=== PATIENT | female | born 1950 | race Caucasian/White ===

== ENCOUNTER 2024-08-08 16:03 | Emergency (ER) | payer OTHER ==
[2024-08-08] MEDS ORDERED: NA CHLORIDE 0.9% 1,000 ML ONE (17:05)
[2024-08-08 17:30] LABS: Specific Gravity < 1.005 (1.005-1.030); Sqamous Epithelial None Seen /HPF (None Seen); Urine Bacteria <20 /HPF (<20); Urine Bilirubin NEGATIVE (Negative); Urine Blood Trace (Negative); Urine Clarity Turbid (Clear); Urine Color Colorless (Yellow); Urine Culture Reflex Order NOT NEEDED; Urine Glucose NEGATIVE (Negative); Urine Ketones TRACE (Negative); Urine Microscopic Reflex YN ORDER UMIC; Urine Nitrite NEGATIVE (Negative); Urine Protein NEGATIVE (Negative); Urine RBC <5 /HPF (None Seen); Urine Urobilinogen Normal (Normal); Urine WBC <5 /HPF (<5); Urine pH 6.5 (5.0-7.0)
[2024-08-08 17:35] LABS: Absolute Eosinophils 0.3 K/uL (0-0.5); Absolute Monocytes 0.8 K/uL (0.1-1.3); Absolute Neutrophil 4.6 K/uL (1.8-8.0); Basophils % 0.7 % (0-1.3); Eosinophils % 4.5 % (0-4.4); Hematocrit 41.1 % (36.0-45.0); Hemoglobin 13.3 g/dL (12.0-15.0); Lymphocytes % 14.7 % (15.3-44.8); MCH 28.4 pg (27.0-35.0); MCHC 32.4 g/dL (32.0-36.0); MCV 87.7 fL (80-100); MPV 9.7 fL (7.6-11.3); Monocytes % 11.4 % (3.3-12.3); Neutrophils % 68.7 % (41.7-73.7); Nucleated Red Blood Cells % 0.1 % (0-0); Platelets 189 thou/uL (152-406); RBC Red Blood Cell Count 4.68 M/uL (3.86-4.86); Red Cell Distribution Width 18.8 % (12.1-15.2)
[2024-08-08 17:52] LABS: Albumin 2.6 g/dL (3.4-5.0); Albumin/Globulin Ratio 0.6 (1.1-1.8); Anion Gap 10.2 mEq/L (5.0-15.0); Bilirubin Total 0.7 mg/dL (0.2-1.0); Globulin 4.3 g/dL (2.3-3.5); Potassium 3.2 mEq/L (3.5-5.1); Protein, Total 6.9 g/dL (6.4-8.2)
--- NOTE | 2024-08-08 18:50 | RAD REPORT ---
EXAMINATION: CT Abdomen Pelvis W Contrast CLINICAL INDICATION: Female, 73 years old. ABD PAIN TECHNIQUE: CT abdomen and pelvis was performed, after the administration of IV contrast, as per [facility] protocol. Axial, sagittal and coronal reconstructions were obtained. One or more of the following dose reduction techniques were used: Automated exposure control, adjustment of the mA and k V according to patient size, and iterative reconstruction. Unless otherwise specified, incidental findings do not require dedicated imaging follow-up. COMPARISON: No prior exam. FINDINGS: LOWER CHEST: Bilateral pleural fibrotic changes/scarring. LIVER: Normal in size and contour. Hypoattenuating posterior right lobe subcapsular 1.2 cm lesion, no t well characterized. Hyperenhancing 11 mm lesion peripheral right lower lobe inferiorly, may represent a hemangioma, not well characterized as well. BILIARY SYSTEM: No suspicious abnormalities. SPLEEN: Normal size. No focal lesion. PANCREAS: No mass, ductal dilation, or ileana-pancreatic fluid. ADRENALS: Normal; no mass. KIDNEYS: Normal size and contour. No hydronephrosis. URINARY BLADDER: Unremarkable. GASTROINTESTINAL TRACT: Moderate-sized hiatal hernia. No evidence of free air, significant intra-abdo isaac free fluid, bowel obstruction or abscess. APPENDIX: Normal appendix. LYMPH NODES: No lymphadenopathy. MUSCULOSKELETAL: No acute or suspicious osseous abnormality. ADDITIONAL FINDINGS: Retroverted uterus. Multiple subserosal masses suggesting fibroids. Hypoattenuat ing rounded 2.9 cm mass centered on the fundal endometrium, may suggest a subendometrial fibroid. Crescentic hypoattenuating 4.6 x 3.3 cm lesion along the left posterior pelvis, may represent a subse cahno degenerating fibroid versus adnexal cystic lesion. These are not well characterized. IMPRESSION: No acute intra-abdominal or intrapelvic process. Small lesions of the liver as above, may represent a cyst and hemangioma, not well characterized, but likely benign. If additional imaging characterization is needed, MRI evaluation would be more helpful. Retroverted uterus with multiple masses suggesting fibroids, including a subendometrial 2.9 cm mass. These can be further evaluated by targeted ultrasound. A crescentic hypoattenuating left posterior pelvic 4.6 cm lesion may represent a degenerating fibroid versus complex pelvic cyst. Moderate hiatal hernia and other incidental findings as above
[2024-08-08] MEDS ORDERED: POTASSIUM CL SA 10 MEQ TAB PO ONE (19:26)
[2024-08-08] MEDS ORDERED: FLEET ENEMA ADULT PR ONE (19:26)
--- NOTE | 2024-08-08 20:43 | EDPHYS ---
Physician Documentation [facility] Name: Jovani Soriano Age: 73 yrs Sex: Female : 1950 Arrival Date: 08/08/2024 Time: 16:03 Bed 16 Private MD: ED Physician Trino Ambriz HPI: 08/08 18:09 This 73 yrs old Female presents to ER via Ambulatory with complaints of Constipation. kb 18:09 Pt is a 73 year old female who presents for constipation that started 2 weeks ago. kb States she hasn't been eating much because everything tastes salty to her and she has been feeling weak. Went to a GI dr 7 days ago and was told to take magnesium citrate and an enema. States she did those things 7 days ago and was able to get some stool out but it was like diarrhea so she believes she has a blockage or impaction. States she put her finger in her rectum, but didn't feel any stool so she believes it is higher up. Historical: - Allergies: 16:40 No Known Allergies; hb - Immunization history:: Adult Immunizations up to date. - Infectious Disease History:: Denies. - Social history:: Smoking status: Patient denies any tobacco usage or history of. ROS: 18:08 Constitutional: As per HPI kb Exam: 18:08 Constitutional: This is a well developed, well nourished patient who is awake, alert, kb and in no acute distress. Head/Face: Normocephalic, atraumatic. ENT: Moist Mucous membranes Cardiovascular: Regular rate Respiratory: Respirations even and unlabored. No increased work of breathing. Talking in full sentences Skin: Warm, dry with normal turgor. Normal color. MS/ Extremity: Pulses equal, no cyanosis. Neurovascular intact. Full, normal range of motion. Neuro: Awake and alert, GCS 15, oriented to person, place, time, and situation. Moves all extremities. Normal gait. 18:08 Abdomen/GI: Inspection: abdomen appears normal, Bowel sounds: normal, Palpation: soft, in all quadrants, mild abdominal tenderness, in the left lower quadrant, Vital Signs: 16:15 BP 155 / 103; Pulse 102; Resp 16; Temp 98.1(O); Pulse Ox 97% on R/A; Weight 68.04 kg; hb Height 5 ft. 5 in. ; Pain 0/10; 16:30 BP 158 / 109; Pulse 95; Resp 18; Pulse Ox 98% on R/A; db 17:40 BP 148 / 83; Pulse 91; Resp 18; Pulse Ox 100% on R/A; db 18:00 BP 154 / 90; Pulse 88; Resp 18; Pulse Ox 100% on R/A; db 19:14 BP 161 / 82; Pulse 86; Resp 20; Pulse Ox 100% on R/A; kj2 21:08 BP 150 / 80; Pulse 82; Resp 20; Temp 98; Pulse Ox 100% on R/A; kj2 16:15 Body Mass Index 24.96 (68.04 kg, 165.1 cm) hb 16:15 Pain Scale: Adult hb MDM: 16:15 Patient medically screened. kb 18:09 Differential diagnosis: constipation, bowel obstruction, fecal impaction. Data kb reviewed: vital signs, nurses notes. 20:42 Historians other than the Patient: Spouse/Significant Other: . Counseling: I had kb a detailed discussion with the patient and/or guardian regarding the historical points, exam findings, and any diagnostic results supporting the discharge/admit diagnosis, lab results, radiology results, the need for outpatient follow up, a family practitioner, a retail sales associate bilingual, to return to the emergency department if symptoms worsen or persist or if there are any questions or concerns that arise at home. 08/08 16:37 Order name: CBC with Diff; Complete Time: 17:46 kb 08/08 16:37 Order name: CMP; Complete Time: 18:00 kb 08/08 16:37 Order name: Lipase; Complete Time: 18:00 kb 08/08 16:37 Order name: Urinalysis w/ reflexes; Complete Time: 17:36 kb 08/08 16:37 Order name: CT Abd/Pelvis - IV Contrast Only; Complete Time: 18:54 kb 08/08 16:37 Order name: IV Saline Lock; Complete Time: 17:49 kb 08/08 16:37 Order name: Labs collected and sent; Complete Time: 17:49 kb Administered Medications: 17:40 Drug: NS 0.9% IV 1000 ml IV at 1 bolus Per protocol; 1000 mL bolus Route: IV; Rate: 1 db bolus; Site: left antecubital; 21:12 Follow up: IV Status: Completed infusion; IV Intake: 1000ml kj2 19:57 Drug: Potassium Chloride PO 40 mEq PO once Route: PO; kj2 21:10 Follow up: Response: No adverse reaction kj2 19:57 Drug: Fleet Enema MO 133 ml MO once; may repeat once Route: MO; kj2 21:09 Follow up: Response: No adverse reaction; Marked relief of symptoms kj2 Disposition: 19:43 I was immediately available on-site in the Emergency Department for consultation in the ms3 care of the patient. Disposition Summary: 08/08/24 20:43 Discharge Ordered Notes: Location: Home kb Condition: Stable kb Diagnosis - Constipation kb Followup: kb - With: Emergency Department - When: As needed - Reason: Worsening of condition Followup: kb - With: Private Physician - When: 2 - 3 days - Reason: Recheck today's complaints, Continuance of care, Re-evaluation by your physician Discharge Instructions: - Discharge Summary Sheet kb - Constipation, Adult, [id number] kb Forms: - Medication Reconciliation Form kb - Antibiotic Education kb - Prescription Opioid Use kb - Patient Portal Instructions kb - Leadership Thank You Letter kb Signatures: Dispatcher [employer] EDMS Lyubov Lucia, PARCEL POST CLERK-C PARCEL POST CLERK-Ckb Luz Smallwood, RN RN Trino Ambriz, DO ms3 Herlinda Martinez RN RN db Em Adam RN RN kj2 Corrections: (The following items were deleted from the chart) 16:37 16:37 CBC+H.LAB.BRZ ordered. EDMS EDMS 16:37 16:37 COMPREHENSIVE METABOLIC PANEL+C.LAB.BRZ ordered. EDMS EDMS 16:37 16:37 LIPASE+C.LAB.BRZ ordered. EDMS EDMS 16:37 16:37 Urinalysis+U.LAB.BRZ ordered. EDMS EDMS 16:37 16:37 Abdomen Pelvis W Con+CT.RAD.BRZ ordered. EDMS EDMS
--- NOTE | 2024-08-08 20:43 | ER ---
Nurse's Notes [facility] Name: Jovani Soriano Age: 73 yrs Sex: Female : 1950 Arrival Date: 08/08/2024 Time: 16:03 Bed 16 Private MD: Diagnosis: Constipation Presentation: 08/08 16:15 Chief complaint: Constipation x 1 month, last bowel movement was 1 week ago. hb Coronavirus screen: At this time, the client does not indicate any symptoms associated with coronavirus-19. Ebola Screen: No symptoms or risks identified at this time. Initial Sepsis Screen: Does the patient meet any 2 criteria? No. Patient's initial sepsis screen is negative. Does the patient have a suspected source of infection? No. Patient's initial sepsis screen is negative. Risk Assessment: Do you want to hurt yourself or someone else? Patient reports no desire to harm self or others. Onset of symptoms was July 2024. 16:15 Method Of Arrival: Ambulatory hb 16:15 Acuity: ANALIA 3 hb Historical: - Allergies: 16:40 No Known Allergies; hb - Immunization history:: Adult Immunizations up to date. - Infectious Disease History:: Denies. - Social history:: Smoking status: Patient denies any tobacco usage or history of. Screenin:19 [facility] ED Fall Risk Assessment (Adult) History of falling in the last 3 months, db including since admission No falls in past 3 months (0 pts) Confusion or Disorientation No (0 pts) Intoxicated or Sedated No (0 pts) Impaired Gait No (0 pts) Mobility Assist Device Used No (0 pt) Altered Elimination No (0 pt) Score/Fall Risk Level 0 - 2 = Low Risk Oriented to surroundings, Maintained a safe environment. Abuse screen: Denies threats or abuse. Denies injuries from another. Nutritional screening: No deficits noted. Tuberculosis screening: No symptoms or risk factors identified. Assessment: 16:30 Reassessment: Patient appears in no apparent distress at this time. Patient and/or db family updated on plan of care and expected duration. Pain level reassessed. Patient is alert, oriented x 3, equal unlabored respirations, skin warm/dry/pink. General: Appears in no apparent distress. comfortable, Behavior is calm, cooperative. Pain: Complains of pain in abdomen. Neuro: Level of Consciousness is awake, alert, obeys commands, Oriented to person, place, time, situation. Respiratory: Airway is patent Respiratory effort is even, unlabored, Respiratory pattern is regular, symmetrical. GI: Bowel sounds Abd is soft. 18:15 Reassessment: Patient appears in no apparent distress at this time. Patient and/or db family updated on plan of care and expected duration. Pain level reassessed. Patient is alert, oriented x 3, equal unlabored respirations, skin warm/dry/pink. 19:14 Reassessment: Patient appears in no apparent distress at this time. Patient and/or kj2 family updated on plan of care and expected duration. Pain level reassessed. Patient is alert, oriented x 3, equal unlabored respirations, skin warm/dry/pink. REPORT RECEIVED FROM LEANDRO SANDERS. 19:15 General: Appears in no apparent distress. comfortable, Behavior is calm, cooperative. kj2 Pain: Denies pain. Neuro: Level of Consciousness is awake, alert, obeys commands, Oriented to person, place, time. Cardiovascular: Patient's skin is warm and dry. Respiratory: Airway is patent Respiratory effort is even, unlabored. GI: Reports constipation. : No signs and/or symptoms were reported regarding the genitourinary system. 20:30 Reassessment: PATIENT HAD 1 BOWEL MOVEMENT, ENEMA EFFECTIVE. kj2 20:57 Reassessment: Patient appears in no apparent distress at this time. Patient and/or kj2 family updated on plan of care and expected duration. Pain level reassessed. Patient is alert, oriented x 3, equal unlabored respirations, skin warm/dry/pink. Vital Signs: 16:15 BP 155 / 103; Pulse 102; Resp 16; Temp 98.1(O); Pulse Ox 97% on R/A; Weight 68.04 kg; hb Height 5 ft. 5 in. ; Pain 0/10; 16:30 BP 158 / 109; Pulse 95; Resp 18; Pulse Ox 98% on R/A; db 17:40 BP 148 / 83; Pulse 91; Resp 18; Pulse Ox 100% on R/A; db 18:00 BP 154 / 90; Pulse 88; Resp 18; Pulse Ox 100% on R/A; db 19:14 BP 161 / 82; Pulse 86; Resp 20; Pulse Ox 100% on R/A; kj2 21:08 BP 150 / 80; Pulse 82; Resp 20; Temp 98; Pulse Ox 100% on R/A; kj2 16:15 Body Mass Index 24.96 (68.04 kg, 165.1 cm) hb 16:15 Pain Scale: Adult hb ED Course: 16:10 Patient arrived in ED. im 16:14 [facility]ubov Lucia[facility] kb 16:14 Trino Ambriz DO is Attending Physician. kb 16:40 Triage completed. hb 16:41 Arm band placed on. hb 16:54 Luz Smallwood, RN is Primary Nurse. hb 17:08 Initial lab(s) drawn, by me, sent to lab. Inserted saline lock: 20 gauge in left hb antecubital area, using aseptic technique. Blood collected. Flushed with 10 mL NS. 17:[address] via wheelchair. hb 17:33 CT Abd/Pelvis - IV Contrast Only In Process Unspecified. EDMS 17:42 Patient has correct armband on for positive identification. Bed in low position. Call hb light in reach. Side rails up X 1. Pulse ox on. NIBP on. Pillow given. 18:19 Provided Education on: LABS AND RADIOLOGY. db 19:16 Assisted to bathroom. kj2 19:58 No provider procedures requiring assistance completed. kj2 20:01 Assisted to bedside commode. kj2 21:09 IV discontinued, bleeding controlled, No redness/swelling at site. Pressure dressing kj2 applied. Administered Medications: 17:40 Drug: NS 0.9% IV 1000 ml IV at 1 bolus Per protocol; 1000 mL bolus Route: IV; Rate: 1 db bolus; Site: left antecubital; 21:12 Follow up: IV Status: Completed infusion; IV Intake: 1000ml kj2 19:57 Drug: Potassium Chloride PO 40 mEq PO once Route: PO; kj2 21:10 Follow up: Response: No adverse reaction kj2 19:57 Drug: Fleet Enema MI 133 ml MI once; may repeat once Route: MI; kj2 21:09 Follow up: Response: No adverse reaction; Marked relief of symptoms kj2 Medication: 19:58 VIS not applicable for this client. kj2 Intake: 21:12 IV: 1000ml; Total: 1000ml. kj2 Outcome: 20:43 Discharge ordered by . kb 21:08 Discharged to home ambulatory, with family, kj2 21:08 Condition: stable 21:08 Discharge instructions given to patient, family, Instructed on discharge instructions, follow up and referral plans. Demonstrated understanding of instructions, follow-up care, 21:11 Patient left the ED. kj2 Signatures: Dispatcher [employer] EDMS Lyubov Lucia, ISA MUSE-Luz Kim RN RN Herlinda Lewis, RN RN Chhaya Choi Krystal, RN RN kj2
[2024-08-08 21:40] VITALS: O2SAT 100
[2024-08-08 21:44] VITALS: BP 150/80; TEMP 98
== END 2024-08-08 21:11 | disposition home or self-care (01) ==
LOC: ER 16:03
DX: K59.00 Constipation, unspecified (principal)
CPT/HCPCS: 96361; 85025; 81001; 36415; 82565; 83690; 80053; 74177; 96360; 99285; Q9967; J7030